=== PATIENT | female | born 2000 | race Caucasian/White ===

== ENCOUNTER 2021-05-13 04:52 | Emergency (ER) | payer BC ==
[2021-05-13] MEDS ORDERED: Dexamethasone 10 MG/ML VIAL ONE (05:12)
[2021-05-13] MEDS ORDERED: Ondansetron ODT 4 MG TAB ONE (05:12)
== END 2021-05-13 05:45 | disposition home or self-care (01) ==
LOC: ERS 04:52
DX: F10.129 Alcohol abuse with intoxication, unspecified (principal); H02.841 Edema of right upper eyelid; H02.844 Edema of left upper eyelid
CPT/HCPCS: 99283; J1100; Q0162